=== PATIENT | female | born 1940 | race Caucasian/White ===

== ENCOUNTER 2020-05-11 15:11 | Emergency (ER) | payer MEDICARE, OTHER ==
[2020-05-11 17:05] LABS: EOSINOPHIL 13.8 % (0-7); HCT 36.3 % (37.0-47.0); HGB 12.3 g/dl (12.5-16.0); LYMPHOCYTE 15.5 % (15-48); MCH 29.8 pg (25.0-31.0); MCHC 33.9 g/dL (32.0-36.0); MCV 87.9 fL (78.0-100.0); MONOCYTE 12.9 % (0-12); MPV 9.6 fL (6.0-9.5); NEUTROPHIL 55.9 % (41-80); NRBC 0; PLT 360 K/uL (150-400); RBC 4.13 M/uL (4.20-5.40); WBC 7.7 K/uL (4.0-10.5)
[2020-05-11 17:12] LABS: ALBUMIN 2.7 g/dL (3.4-5.0); BILIRUBIN - TOTAL 0.3 mg/dL (0.2-1.0); BUN/CREAT RATIO (CALC) 23.4 RATIO; CREATININE 0.47 mg/dL (0.51-0.95); GLOBULIN (CALCULATION) 4.4 g/dL; POTASSIUM 3.8 mmol/L (3.5-5.1); TOTAL PROTEIN 7.1 g/dL (6.4-8.2)
[2020-05-11 19:42] LABS: BILIRUBIN NEGATIVE (NEGATIVE); BLOOD NEGATIVE Ery/uL (NEGATIVE); COLOR YELLOW (YELLOW); GLUCOSE (U) NORMAL (NORMAL); LEUKOCYTES 1+ Leu/uL (NEGATIVE); NITRITE POSITIVE (NEGATIVE); PROTEIN NEGATIVE (NEGATIVE); SPECIFIC GRAVITY <=1.005 (1.001-1.030); UROBILINOGEN 0.2 mg/dL (0.2-1.0); pH 6.5 (5.0-9.0)
[2020-05-11 19:45] LABS: BACTERIA 3+; CLARITY HAZY (CLEAR)
[2020-05-11] MEDS ORDERED: KEFLEX250 MG PO (20:26)
[2020-05-11] MEDS ORDERED: ONDANSETRON ODT4 MG PO (21:17)
== END 2020-05-11 21:52 | disposition home or self-care (01) ==
LOC: FER 15:11
PROVIDERS: Emergency Medicine
DX: N39.0 Urinary tract infection, site not specified (principal); I10 Essential (primary) hypertension; E11.9 Type 2 diabetes mellitus without complications
CPT/HCPCS: 36415; 71045; 72110; 80053; 81001; 84484; 85025; 87076; 87088; 87186; 93005; J0696; J7030

== ENCOUNTER 2020-07-25 17:28 | Inpatient (IN) | payer MEDICARE, OTHER ==
[~2020-07-25] VITALS: Ht 157.5 cm; Wt 44.5 kg
[~2020-07-25 17:28] MED LIST: KEFLEX250 MG PO; ONDANSETRON ODT4 MG PO
[2020-07-25 18:37] LABS: BASOPHIL 0.9 % (0-2); EOSINOPHIL 1.3 % (0-7); HCT 38.5 % (37.0-47.0); HGB 13.5 g/dl (12.5-16.0); LYMPHOCYTE 22.4 % (15-48); MCH 31.3 pg (25.0-31.0); MCHC 35.1 g/dL (32.0-36.0); MCV 89.1 fL (78.0-100.0); MONOCYTE 10.4 % (0-12); MPV 9.5 fL (6.0-9.5); NEUTROPHIL 64.7 % (41-80); NRBC 0; PLT 241 K/uL (150-400); RBC 4.32 M/uL (4.20-5.40); RDW 12.3 % (11.5-14.0); WBC 7.1 K/uL (4.0-10.5)
[2020-07-25 18:47] LABS: BILIRUBIN 1+ mg/dL (NEGATIVE); BLOOD NEGATIVE Ery/uL (NEGATIVE); CLARITY CLEAR (CLEAR); COLOR YELLOW (YELLOW); GLUCOSE (U) NORMAL (NORMAL); LEUKOCYTES 2+ Leu/uL (NEGATIVE); NITRITE NEGATIVE (NEGATIVE); PROTEIN 1+ mg/dL (NEGATIVE); SPECIFIC GRAVITY 1.025 (1.001-1.030); UROBILINOGEN 0.2 mg/dL (0.2-1.0)
[2020-07-25 18:48] LABS: INR 1.07 (0.9-1.2); PROTHROMBIN TIME 13.2 SECONDS (11.4-13.6)
[2020-07-25 18:53] LABS: BACTERIA 1+; CALCIUM OXALATE CRYSTALS TRACE; MUCOUS TRACE
[2020-07-25 19:05] LABS: ALBUMIN 3.9 g/dL (3.4-5.0); BILIRUBIN - TOTAL 0.3 mg/dL (0.2-1.0); BUN/CREAT RATIO (CALC) 27.3 RATIO; CREATININE 0.55 mg/dL (0.51-0.95); GLOBULIN (CALCULATION) 2.9 g/dL; LACTIC ACID 4.6 mmol/L (0.4-1.9); MAGNESIUM 1.1 mg/dL (1.8-2.4); POTASSIUM 3.8 mmol/L (3.5-5.1); TOTAL PROTEIN 6.8 g/dL (6.4-8.2)
[2020-07-26] MEDS ORDERED: REMERON15 MG PO (03:02)
[2020-07-26] MEDS ORDERED: METFORMIN HCL500 MG PO (03:02)
[2020-07-26] MEDS ORDERED: ARICEPT 5MG TABL5 MG PO (03:03)
[2020-07-26] MEDS ORDERED: NAMENDA 10MG TA10 MG PO (03:04)
[2020-07-26] MEDS ORDERED: FOLIC ACID1 MG PO (03:05)
[2020-07-26] MEDS ORDERED: RISPERDAL 0.5M0.5 MG PO (03:05)
[2020-07-26] MEDS ORDERED: BUSPAR5 MG PO (03:05)
[2020-07-26] MEDS ORDERED: GLUCOTROL5 MG PO (03:07)
[2020-07-26] MEDS ORDERED: CRESTOR10 MG PO (03:08)
[2020-07-26 05:56] LABS: BASOPHIL 0.9 % (0-2); EOSINOPHIL 2.6 % (0-7); HCT 36.3 % (37.0-47.0); HGB 12.5 g/dl (12.5-16.0); LYMPHOCYTE 26.4 % (15-48); MCH 30.6 pg (25.0-31.0); MCHC 34.4 g/dL (32.0-36.0); MCV 88.8 fL (78.0-100.0); MONOCYTE 11.6 % (0-12); MPV 9.5 fL (6.0-9.5); NEUTROPHIL 58.2 % (41-80); NRBC 0; PLT 202 K/uL (150-400); RBC 4.09 M/uL (4.20-5.40); RDW 12.3 % (11.5-14.0); WBC 6.8 K/uL (4.0-10.5)
[2020-07-26 07:08] LABS: ALBUMIN 3.4 g/dL (3.4-5.0); BILIRUBIN - TOTAL 0.4 mg/dL (0.2-1.0); BUN/CREAT RATIO (CALC) 25.6 RATIO; CREATININE 0.43 mg/dL (0.51-0.95); GLOBULIN (CALCULATION) 2.6 g/dL; POTASSIUM 3.4 mmol/L (3.5-5.1)
[2020-07-27 06:12] LABS: HCT 37.3 % (37.0-47.0); HGB 13.1 g/dl (12.5-16.0); MCHC 35.1 g/dL (32.0-36.0); MCV 88.4 fL (78.0-100.0); MPV 9.2 fL (6.0-9.5); RBC 4.22 M/uL (4.20-5.40); RDW 12.4 % (11.5-14.0); WBC 5.8 K/uL (4.0-10.5)
[2020-07-27 06:37] LABS: BUN/CREAT RATIO (CALC) 19.5 RATIO; CREATININE 0.41 mg/dL (0.51-0.95); POTASSIUM 3.5 mmol/L (3.5-5.1)
[2020-07-28] MEDS ORDERED: FLORANEX TABLE1 EACH PO (10:45)
[2020-07-28] MEDS ORDERED: CEFDINIR300 MG PO (10:45)
== END 2020-07-28 12:11 | disposition home health service (06) | DRG 871 ==
LOC: FER 17:28 → FMS 21:55
PROVIDERS: Emergency Medicine; Nurse Practitioner; ADMIT Hospitalist
DX: A41.51 Sepsis due to Escherichia coli [E. coli] (principal); G93.41 Metabolic encephalopathy; N30.01 Acute cystitis with hematuria; Z68.1 Body mass index [BMI] 19.9 or less, adult; E87.2 Acidosis; E11.9 Type 2 diabetes mellitus without complications; Z20.822 Contact with and (suspected) exposure to COVID-19; Z23 Encounter for immunization; F03.90 Unspecified dementia, unspecified severity, without behavioral disturbance, psychotic disturbance, mood disturbance, and anxiety; I10 Essential (primary) hypertension; K59.00 Constipation, unspecified; E86.0 Dehydration; R63.6 Underweight; Z79.84 Long term (current) use of oral hypoglycemic drugs; Z79.899 Other long term (current) drug therapy; Z90.710 Acquired absence of both cervix and uterus; Z88.0 Allergy status to penicillin
CPT/HCPCS: 36415; 70450; 71045; 71250; 80048; 80053; 81001; 83605; 83735; 84145; 84443; 84484; 85025; 85610; 85730; 87040; 87076; 87088; 87186; 90732; 93005; 94010; 94760; 94762; 96365; 96375; 97161; 97166; 97530-GP; 97535; G0009; J0692; J1650; J1885; J2543; J3475; J7030; U0002

== ENCOUNTER 2020-12-06 12:57 | Emergency (ER) | payer MEDICARE, OTHER ==
[~2020-12-06 12:57] MED LIST changes: +ARICEPT 5MG TABL5 MG PO; +BUSPAR5 MG PO; +CEFDINIR300 MG PO; +CRESTOR10 MG PO; +FLORANEX TABLE1 EACH PO; +FOLIC ACID1 MG PO; +GLUCOTROL5 MG PO; +METFORMIN HCL500 MG PO; +NAMENDA 10MG TA10 MG PO; +REMERON15 MG PO; +RISPERDAL 0.5M0.5 MG PO
[2020-12-06 15:41] LABS: BILIRUBIN NEGATIVE (NEGATIVE); BLOOD NEGATIVE Ery/uL (NEGATIVE); CLARITY CLEAR (CLEAR); COLOR YELLOW (YELLOW); GLUCOSE (U) NORMAL (NORMAL); LEUKOCYTES NEGATIVE Leu/uL (NEGATIVE); NITRITE NEGATIVE (NEGATIVE); PROTEIN NEGATIVE (NEGATIVE); SPECIFIC GRAVITY 1.015 (1.001-1.030); UROBILINOGEN 0.2 mg/dL (0.2-1.0)
[2020-12-06] MEDS ORDERED: STOOL SOFTENER100 MG PO (16:08)
== END 2020-12-06 16:29 | disposition home or self-care (01) ==
LOC: FER 12:57
PROVIDERS: Emergency Medicine
DX: K59.00 Constipation, unspecified (principal); I10 Essential (primary) hypertension; E11.9 Type 2 diabetes mellitus without complications; F03.90 Unspecified dementia, unspecified severity, without behavioral disturbance, psychotic disturbance, mood disturbance, and anxiety; Z88.0 Allergy status to penicillin
CPT/HCPCS: 74018; 81003; 87088

== ENCOUNTER 2020-12-14 20:57 | Inpatient (IN) | payer MEDICARE, OTHER ==
[~2020-12-14] VITALS: Ht 157.5 cm; Wt 36.8 kg
[~2020-12-14 20:57] MED LIST changes: +STOOL SOFTENER100 MG PO
[2020-12-14 21:35] LABS: BASOPHIL 1.1 % (0-2); EOSINOPHIL 1.7 % (0-7); HCT 39.2 % (37.0-47.0); HGB 13.8 g/dl (12.5-16.0); LYMPHOCYTE 22.4 % (15-48); MCH 32.6 pg (25.0-31.0); MCHC 35.2 g/dL (32.0-36.0); MCV 92.7 fL (78.0-100.0); MONOCYTE 11.8 % (0-12); MPV 9.2 fL (6.0-9.5); NEUTROPHIL 62.8 % (41-80); NRBC 0; PLT 209 K/uL (150-400); RBC 4.23 M/uL (4.20-5.40); RDW 11.3 % (11.5-14.0); WBC 4.7 K/uL (4.0-10.5)
[2020-12-14 21:59] LABS: ALBUMIN 3.9 g/dL (3.4-5.0); BILIRUBIN - TOTAL 0.4 mg/dL (0.2-1.0); BUN/CREAT RATIO (CALC) 23.3 RATIO; CREATININE 0.43 mg/dL (0.51-0.95); GLOBULIN (CALCULATION) 3.1 g/dL
[2020-12-14 23:05] LABS: BILIRUBIN NEGATIVE (NEGATIVE); BLOOD NEGATIVE Ery/uL (NEGATIVE); CLARITY CLEAR (CLEAR); COLOR YELLOW (YELLOW); GLUCOSE (U) NORMAL (NORMAL); LEUKOCYTES TRACE Leu/uL (NEGATIVE); NITRITE NEGATIVE (NEGATIVE); PROTEIN NEGATIVE (NEGATIVE); UROBILINOGEN 0.2 mg/dL (0.2-1.0); pH 6.5 (5.0-9.0)
[2020-12-14 23:15] LABS: BACTERIA TRACE; URINARY WBC RARE
[2020-12-14 23:16] LABS: AMORPHOUS URATES CRYSTALS TRACE
[2020-12-15 02:06] LABS: LACTIC ACID 3.3 mmol/L (0.4-1.9)
[2020-12-15] MEDS ORDERED: CELEXA10 MG PO (05:31)
[2020-12-15] MEDS ORDERED: CYPROHEPTADINE H4 M1 PO (05:33)
[2020-12-15] MEDS ORDERED: PROAMATINE5 MG PO (05:33)
[2020-12-15 08:11] LABS: EOSINOPHIL 2.4 % (0-7); HCT 39.8 % (37.0-47.0); HGB 13.6 g/dl (12.5-16.0); LYMPHOCYTE 41.8 % (15-48); MCH 32.1 pg (25.0-31.0); MCHC 34.2 g/dL (32.0-36.0); MCV 93.9 fL (78.0-100.0); MONOCYTE 12.7 % (0-12); MPV 9.2 fL (6.0-9.5); NEUTROPHIL 41.7 % (41-80); NRBC 0; PLT 202 K/uL (150-400); RBC 4.24 M/uL (4.20-5.40); RDW 11.5 % (11.5-14.0); WBC 4.9 K/uL (4.0-10.5)
[2020-12-15 08:49] LABS: ALBUMIN 3.6 g/dL (3.4-5.0); ALKALINE PHOSHATASE 49 U/L (46-116); ALT 15 U/L (14-59); AST 7 U/L (15-37); BILIRUBIN - TOTAL 0.2 mg/dL (0.2-1.0); BUN 5 mg/dL (7-18); BUN/CREAT RATIO (CALC) 11.6 RATIO; CHLORIDE 103 mmol/L (98-107); CO2 (BICARBONATE) 30 mmol/L (21-32); CREATININE 0.43 mg/dL (0.51-0.95); GLOBULIN (CALCULATION) 2.6 g/dL; GLUCOSE 121 mg/dL (74-106); MAGNESIUM 1.4 mg/dL (1.8-2.4); PHOSPHORUS 3.5 mg/dL (2.6-4.7); POTASSIUM 3.5 mmol/L (3.5-5.1); TOTAL PROTEIN 6.2 g/dL (6.4-8.2)
[2020-12-15 08:51] LABS: C-REACTIVE PROTEIN < 0.20 mg/dL (<=0.90)
--- NOTE | 2020-12-15 14:45 | NUR ---
BLADDER SCAN DONE WITH 11CC NOTED AFTER SCANNING TWICE
[2020-12-16 06:52] LABS: BASOPHIL 0.9 % (0-2); HCT 37.2 % (37.0-47.0); HGB 12.8 g/dl (12.5-16.0); LYMPHOCYTE 34.6 % (15-48); MCH 32.1 pg (25.0-31.0); MCHC 34.4 g/dL (32.0-36.0); MCV 93.2 fL (78.0-100.0); MONOCYTE 11.4 % (0-12); MPV 9.3 fL (6.0-9.5); NEUTROPHIL 50.9 % (41-80); NRBC 0; PLT 190 K/uL (150-400); RBC 3.99 M/uL (4.20-5.40); RDW 11.2 % (11.5-14.0); WBC 5.5 K/uL (4.0-10.5)
[2020-12-16 07:13] LABS: ALBUMIN 3.7 g/dL (3.4-5.0); BILIRUBIN - TOTAL 0.2 mg/dL (0.2-1.0); BUN/CREAT RATIO (CALC) 18.4 RATIO; CREATININE 0.49 mg/dL (0.51-0.95); GLOBULIN (CALCULATION) 2.9 g/dL; TOTAL PROTEIN 6.6 g/dL (6.4-8.2)
[2020-12-16] MEDS ORDERED: TAMSULOSIN HCL0.4 MG PO (11:14)
[2020-12-16] MEDS ORDERED: MIRALAX17 GM PO (11:14)
--- NOTE | 2020-12-16 11:56 | NUR ---
12/16/20 Ms. Carr lives with her daughter, Destiny De La Torre. She has 24 hour caregivers by family and paid caregivers. She has a rw, s, chair, and 3in1. A referral was made to [facility] per famaily choice.
--- NOTE | 2020-12-16 13:29 | NUR ---
CARLOS ASKED THAT I TELL THE DR. MANNING THAT PT JUNE D/C TO [facility] THIS DATE. ADVISED DR. MANNING THAT PT. JUNE D/C TODAY TO [facility].
== END 2020-12-16 15:42 | DRG 698 ==
LOC: FER 20:57 → FMS 12-15 03:35
PROVIDERS: Emergency Medicine Emergency Medical Services; Nurse Practitioner; Nurse Practitioner Family; ADMIT Family Medicine
DX: N31.9 Neuromuscular dysfunction of bladder, unspecified (principal); G93.41 Metabolic encephalopathy; A41.9 Sepsis, unspecified organism; N13.30 Unspecified hydronephrosis; Z20.822 Contact with and (suspected) exposure to COVID-19; Z66 Do not resuscitate; R33.8 Other retention of urine; E11.9 Type 2 diabetes mellitus without complications; K59.00 Constipation, unspecified; F03.90 Unspecified dementia, unspecified severity, without behavioral disturbance, psychotic disturbance, mood disturbance, and anxiety; I10 Essential (primary) hypertension; Z90.49 Acquired absence of other specified parts of digestive tract; Z90.710 Acquired absence of both cervix and uterus; Z87.440 Personal history of urinary (tract) infections; Z79.84 Long term (current) use of oral hypoglycemic drugs; Z79.899 Other long term (current) drug therapy; Z88.0 Allergy status to penicillin; Z82.49 Family history of ischemic heart disease and other diseases of the circulatory system
CPT/HCPCS: 36415; 70450; 71045; 76770; 80053; 81001; 83605; 83735; 84100; 84145; 84484; 85025; 86140; 87040; 87077; 87186; 93005; 94010; C9113; J0696; J1650; J2270; J2405; J7030; Q9967; U0002